=== PATIENT | female | born 1965 | race American Indian/Alaskan Native ===

== ENCOUNTER 2019-10-16 02:23 | Emergency (ER) | payer OTHER ==
--- NOTE | 2019-10-16 03:30 | XRay Report ---
CHEST 2 VIEWS INDICATION / CLINICAL INFORMATION: Chest Pain. COMPARISON: None available. FINDINGS: SUPPORT DEVICES: None. HEART / MEDIASTINUM: No significant abnormality. LUNGS / PLEURA: There is a 9 mm nodular density projecting in the right upper chest. There is a 2 cm nodular density projecting on the left upper chest. These are seen on only the frontal view..No pneum othorax. ADDITIONAL FINDINGS: No significant additional findings. IMPRESSION: 1. No focal infiltrate is seen. Nodular densities are noted bilaterally. These are seen on only the f rontal view and could potentially be artifactual related to the patient's clothing or other external structure. I suggest repeating the frontal chest radiograph after removing any possible artifact from clothing and ensuring the patient's hair is out of the field of view. If these densities persist, CT imaging will be necessary. Signer Name: Waylon Meza MD Signed: 10/16/2019 3:26 AM Workstation Name: [id number]
[2019-10-16 03:40] LABS: BUN/Creatinine Ratio 19; Blood Urea Nitrogen 15 mg/dL (7-17); Calcium 9.7 mg/dL (8.4-10.2); Hemolysis Index 76
[2019-10-16 04:30] LABS: Mean Corpuscular HGB Conc 33 % (30-34); Mean Corpuscular Volume 92 fl (79-97); Red Cell Distribution Width 14.4 % (13.2-15.2)
[2019-10-16 04:31] LABS: Platelet Count 51 K/mm3 (140-440)
[2019-10-16 04:35] LABS: Hematocrit 65.4 % (30.3-42.9); Hemoglobin 21.5 gm/dl (10.1-14.3)
[2019-10-16 05:14] LABS: Basophils % (Manual) 0 % (0.0-1.8); Eosinophils % (Manual) 0 % (0.0-4.3); Platelet Estimate Consistent w Auto; RBC Morphology Normal; Total Cells Counted 100
--- NOTE | 2019-10-16 06:22 | Emergency Department Report ---
ED Chest Pain HPI - General Chief Complaint: Chest Pain Stated Complaint: CHEST PAIN Time Seen by Provider: 10/16/19 06:11 Source: patient Mode of arrival: Ambulatory Limitations: No Limitations - History of Present Illness Initial Comments: This is a 54-year-old female that complains of chest pain since early last night. She describes it as left-sided mammary pain which also is experienced back. She has had occasional nonproductive cough. She does not complain of dyspnea initially. However on re-questioning she does admit that she has had dyspnea on exertion. Pain is nonpleuritic. It does worsen on movement and palpation. Patient states that she "had a physical" about a year ago. She reports no problem with blood work which she states was done at that time. She states that she had anemia secondary to fibroids but had a hysterectomy 4 years ago. She reports no persistent anemia. However she is found to be anemic and thrombocytopenic to date. Family history is very positive for coronary artery disease and percutaneous coronary intervention in multiple first-degree family members. Patient denies any prior personal stress testing. MD Complaint: chest pain -: Gradual, hour(s) Onset: during rest Pain Location: left chest Pain Radiation: back (Does not radiate to back but also feels it in the back) Severity: moderate Severity scale (0 -10): 6 Quality: aching Consistency: intermittent, now resolved Improves With: nothing Worsens With: movement re: dyspnea (Dyspnea on exertion). denies: nausea, vomting, diaphoresis Other Symptoms: cough (Occasional nonproductive). denies: fever, syncope, rash, acid taste in mouth, leg swelling Treatments Prior to Arrival: none Aspirin use within the Past 7 Days: (0) No - Related Data Allergies Allergy/AdvReac Type Severity Reaction Status Date / Time No Known Allergies Allergy Unverified 10/16/19 02:49 Heart Score - HEART Score History: Slightly suspicious EKG: Normal Age: 45-65 Risk factors: > 3 risk factors or hx of atherosclerotic disease Troponin: < normal limit HEART Score: 3 - Critical Actions Critical Actions: 0-3 pts:0.9-1.7%risk of adverse cardiac event.Candidate for discharge ED Review of Systems ROS: Stated complaint: CHEST PAIN Other details as noted in HPI Constitutional: denies: chills, fever Eyes: denies: eye pain, eye discharge, vision change ENT: denies: ear pain, throat pain Respiratory: SOB with exertion. denies: cough, shortness of breath, wheezing Cardiovascular: chest pain. denies: palpitations Endocrine: no symptoms reported Gastrointestinal: denies: abdominal pain, nausea, diarrhea Genitourinary: denies: urgency, dysuria, discharge Musculoskeletal: denies: back pain, joint swelling, arthralgia Skin: denies: rash, lesions Neurological: denies: headache, weakness, paresthesias Psychiatric: denies: anxiety, depression Hematological/Lymphatic: denies: easy bleeding, easy bruising ED Past Medical Hx - Past Medical History Previous Medical History?: No - Surgical History Past Surgical History?: Yes Additional Surgical History: hysterectomy - Social History Smoking Status: Current Every Day Smoker Substance Use Type: Marijuana ED Physical Exam - General Limitations: No Limitations General appearance: alert, in no apparent distress - Head Head exam: Present: atraumatic, normocephalic - Eye Eye exam: Present: normal appearance. Absent: scleral icterus - ENT ENT exam: Present: mucous membranes moist - Neck Neck exam: Present: normal inspection - Respiratory Respiratory exam: Present: normal lung sounds bilaterally. Absent: respiratory distress - Cardiovascular Cardiovascular Exam: Present: regular rate, normal rhythm. Absent: systolic murmur, diastolic murmur, rubs, gallop - GI/Abdominal GI/Abdominal exam: Present: soft, normal bowel sounds. Absent: distended, tenderness, guarding, rebound - Extremities Exam Extremities exam: Present: normal inspection, normal capillary refill. Absent: pedal edema, joint swelling, calf tenderness - Back Exam Back exam: Present: normal inspection - Neurological Exam Neurological exam: Present: alert, oriented X3, CN II-XII intact. Absent: motor sensory deficit - Psychiatric Psychiatric exam: Present: normal affect, normal mood - Skin Skin exam: Present: warm, dry, intact, normal color. Absent: rash ED Course Vital Signs 10/16/19 10/16/19 02:41 08:22 Temperature 97.8 F Pulse Rate 74 Respiratory 14 Rate Blood Pressure 148/112 Blood Pressure 152/104 [Left] O2 Sat by Pulse 98 Oximetry - Reevaluation(s) Reevaluation #1: Discussed with the day hospitalist. He stated that the service was capped and to defer the admission to the afternoon hospitalist. A consult to hematology was placed. A repeat CBC was ordered. Type and screen. The patient has remained hemodynamically stable. CT of the chest was negative for pulmonary embolism. Further work-up as an inpatient. 10/16/19 11:04 YUE score - Yue Score Age > 65: (0) No Aspirin use within the Past 7 Days: (0) No 3 or more CAD Risk Factors: (1) Yes 2 or more Angina events in past 24 hrs: (0) No Known CAD with more than 50% Stenosis: (0) No Elevated Cardiac Markers: (0) No ST Deviation Greater than 0.5mm: (0) No YUE Score: 1 ED Medical Decision Making - Lab Data Result diagrams: 10/16/19 02:52 10/16/19 02:52 Laboratory Results - last 24 hr 10/16/19 10/16/19 02:52 02:52 WBC 3.6 L RBC 7.10 H Hgb 21.5 H* Hct 65.4 H* MCV 92 MCH 30 MCHC 33 RDW 14.4 Plt Count 51 L Add Manual Diff Complete Total Counted 100 Seg Neuts % (Manual) 37.0 L Band Neutrophils % 0 Lymphocytes % (Manual) 61.0 H Reactive Lymphs % (Man) 0 Monocytes % (Manual) 2.0 Eosinophils % (Manual) 0 Basophils % (Manual) 0 Metamyelocytes % 0 Myelocytes % 0 Promyelocytes % 0 Blast Cells % 0 Nucleated RBC % Not Reportable Seg Neutrophils # Man 0.0 L Band Neutrophils # 0.0 Lymphocytes # (Manual) 0.0 L Abs React Lymphs (Man) 0.0 Monocytes # (Manual) 0.0 Eosinophils # (Manual) 0.0 Basophils # (Manual) 0.0 Metamyelocytes # 0.0 Myelocytes # 0.0 Promyelocytes # 0.0 Blast Cells # 0.0 WBC Morphology Not Reportable Hypersegmented Neuts Not Reportable Hyposegmented Neuts Not Reportable Hypogranular Neuts Not Reportable Smudge Cells Not Reportable Toxic Granulation Not Reportable Toxic Vacuolation Not Reportable Dohle Bodies Not Reportable Pelger-Huet Anomaly Not Reportable Milagros Rods Not Reportable Platelet Estimate Consistent w auto Clumped Platelets Not Reportable Plt Clumps, EDTA Not Reportable Large Platelets Not Reportable Giant Platelets Not Reportable Platelet Satelliting Not Reportable Plt Morphology Comment Not Reportable RBC Morphology Normal Dimorphic RBCs Not Reportable Polychromasia Not Reportable Hypochromasia Not Reportable Poikilocytosis Not Reportable Anisocytosis Not Reportable Microcytosis Not Reportable Macrocytosis Not Reportable Spherocytes Not Reportable Pappenheimer Bodies Not Reportable Sickle Cells Not Reportable Target Cells Not Reportable Tear Drop Cells Not Reportable Ovalocytes Not Reportable Helmet Cells Not Reportable Anderson-Happy Bodies Not Reportable Rapelje Rings Not Reportable [place] Cells Not Reportable Bite Cells Not Reportable Crenated Cell Not Reportable Elliptocytes Not Reportable Acanthocytes (Spur) Not Reportable Rouleaux Not Reportable Hemoglobin C Crystals Not Reportable Schistocytes Not Reportable Malaria parasites Not Reportable Jose Luis Bodies Not Reportable Hem Pathologist Commnt No Sodium 141 Potassium 4.3 Chloride 102.7 Carbon Dioxide 26 Anion Gap 17 BUN 15 Creatinine 0.8 Estimated GFR > 60 BUN/Creatinine Ratio 19 Glucose 86 Calcium 9.7 Troponin T < 0.010 Laboratory Results - last 24 hr 10/16/19 10/16/19 10/16/19 02:52 02:52 05:55 WBC 3.6 L RBC 7.10 H Hgb 21.5 H* Hct 65.4 H* MCV 92 MCH 30 MCHC 33 RDW 14.4 Plt Count 51 L Lymph % (Auto) Green House Manager Add Manual Diff Complete Total Counted 100 Seg Neuts % (Manual) 37.0 L Band Neutrophils % 0 Lymphocytes % (Manual) 61.0 H Reactive Lymphs % (Man) 0 Monocytes % (Manual) 2.0 Eosinophils % (Manual) 0 Basophils % (Manual) 0 Metamyelocytes % 0 Myelocytes % 0 Promyelocytes % 0 Blast Cells % 0 Nucleated RBC % Not Reportable Seg Neutrophils # Man 0.0 L Band Neutrophils # 0.0 Lymphocytes # (Manual) 0.0 L Abs React Lymphs (Man) 0.0 Monocytes # (Manual) 0.0 Eosinophils # (Manual) 0.0 Basophils # (Manual) 0.0 Metamyelocytes # 0.0 Myelocytes # 0.0 Promyelocytes # 0.0 Blast Cells # 0.0 WBC Morphology Not Reportable Hypersegmented Neuts Not Reportable Hyposegmented Neuts Not Reportable Hypogranular Neuts Not Reportable Smudge Cells Not Reportable Toxic Granulation Not Reportable Toxic Vacuolation Not Reportable Dohle Bodies Not Reportable Pelger-Huet Anomaly Not Reportable Milagros Rods Not Reportable Platelet Estimate Consistent w auto Clumped Platelets Not Reportable Plt Clumps, EDTA Not Reportable Large Platelets Not Reportable Giant Platelets Not Reportable Platelet Satelliting Not Reportable Plt Morphology Comment Not Reportable RBC Morphology Normal Dimorphic RBCs Not Reportable Polychromasia Not Reportable Hypochromasia Not Reportable Poikilocytosis Not Reportable Anisocytosis Not Reportable Microcytosis Not Reportable Macrocytosis Not Reportable Spherocytes Not Reportable Pappenheimer Bodies Not Reportable Sickle Cells Not Reportable Target Cells Not Reportable Tear Drop Cells Not Reportable Ovalocytes Not Reportable Helmet Cells Not Reportable Anderson-Happy Bodies Not Reportable Rapelje Rings Not Reportable [place] Cells Not Reportable Bite Cells Not Reportable Crenated Cell Not Reportable Elliptocytes Not Reportable Acanthocytes (Spur) Not Reportable Rouleaux Not Reportable Hemoglobin C Crystals Not Reportable Schistocytes Not Reportable Malaria parasites Not Reportable Jose Luis Bodies Not Reportable Hem Pathologist Commnt No Sodium 141 Potassium 4.3 Chloride 102.7 Carbon Dioxide 26 Anion Gap 17 BUN 15 Creatinine 0.8 Estimated GFR > 60 BUN/Creatinine Ratio 19 Glucose 86 Calcium 9.7 Troponin T < 0.010 < 0.010 - EKG Data -: EKG Interpreted by Me EKG shows normal: sinus rhythm (First-degree AV block), axis, intervals, QRS complexes, ST-T waves Rate: normal - EKG Data Interpretation: no acute changes - Radiology Data Radiology results: report reviewed (I believe the patient may have pulmonary nodules versus mass. The radiologist raises the question there of.), image reviewed IMPRESSION: 1. No CT evidence for pulmonary embolism. 2. Cardiomegaly with mild increase interstitial lung markings which could represent pulmonary edema. 3. Nodular densities in both lungs may represent early coalescent airspace edema. Follow-up noncontrast chest CT in 6 months is recommended to evaluate resolution of these findings. Critical care attestation.: If time is entered above; I have spent that time in minutes in the direct care of this critically ill patient, excluding procedure time. ED Disposition Clinical Impression: Pancytopenia, Pulmonary nodules Chest pain Qualifiers: Chest pain type: unspecified Qualified Code(s): R07.9 - Chest pain, unspecified Disposition: OP ADMIT IP TO THIS HOSP Is pt being admited?: Yes Does the pt Need Aspirin: No (Patient with a platelet count of 50,000 hold aspirin) Condition: Stable Instructions: Chest Pain (ED) Time of Disposition: 09:21
--- NOTE | 2019-10-16 08:22 | Cat Scan Report ---
CTA CHEST WITH CONTRAST INDICATION / CLINICAL INFORMATION: chest pain abn CXR. TECHNIQUE: Axial CT images were obtained through the chest after injection of 100 MLO Omnipaque 350 IV contrast. 3 plane MIP and/or 3D reconstructions were produced. All CT scans at this location are performed usi ng CT dose reduction for ALYSSA by means of automated exposure control. COMPARISON: None available. FINDINGS: PULMONARY ARTERIES: No pulmonary emboli. THORACIC AORTA: No significant abnormality. HEART: Heart is moderately enlarged. No pericardial effusion or other acute abnormality. CORONARY ARTERIES: No significant calcification. MEDIASTINUM / LYSSA: No significant abnormality. PLEURA: No pleural effusion. No pneumothorax. LUNGS: There are mild bilateral increased interstitial markings with peribronchial cuffing. Nodular d ensities on chest radiograph may represent coalescent areas of early airspace edema. ADDITIONAL FINDINGS: None. UPPER ABDOMEN: No acute findings. SKELETAL STRUCTURES: No significant osseous abnormality. IMPRESSION: 1. No CT evidence for pulmonary embolism. 2. Cardiomegaly with mild increase interstitial lung markings which could represent pulmonary edema. 3. Nodular densities in both lungs may represent early coalescent airspace edema. Follow-up noncontra st chest CT in 6 months is recommended to evaluate resolution of these findings. Signer Name: Rory Deleon MD Signed: 10/16/2019 8:17 AM Workstation Name: [id number]
[2019-10-16 08:23] LABS: INR 1.1 (0.87-1.13)
[2019-10-16 08:24] LABS: Partial Thromboplastin Time 46.4 Sec. (24.2-36.6)
[2019-10-16 08:26] LABS: Creatine Kinase MB 1.9 ng/mL (0.0-4.0)
[2019-10-16 08:27] LABS: Alanine Aminotransferase 15 units/L (7-56); Albumin 4.2 g/dL (3.9-5)
[2019-10-16 08:31] LABS: Bilirubin,Direct < 0.2 mg/dL (0-0.2)
[2019-10-16 12:41] VITALS: BP 150/102
[2019-10-16 13:17] LABS: Basophils # (Auto) 0.1 K/mm3 (0.0-0.1); Basophils % (Auto) 1.1 % (0.0-1.8); Eosinophils # (Auto) 0.1 K/mm3 (0.0-0.4); Eosinophils % (Auto) 1.1 % (0.0-4.3); Lymphocytes # (Auto) 2.6 K/mm3 (1.2-5.4); Lymphocytes % (Auto) 43.8 % (13.4-35.0); Mean Corpuscular HGB Conc 33 % (30-34); Mean Corpuscular Volume 91 fl (79-97); Monocytes # (Auto) 0.5 K/mm3 (0.0-0.8); Monocytes % (Auto) 7.8 % (0.0-7.3); Platelet Count 165 K/mm3 (140-440); Red Blood Count 4.62 M/mm3 (3.65-5.03); Red Cell Distribution Width 13.9 % (13.2-15.2)
== END 2019-10-16 14:51 | disposition other institution (70) ==
LOC: ED 02:23
DX: D61.818 Other pancytopenia (principal); J98.4 Other disorders of lung; F17.200 Nicotine dependence, unspecified, uncomplicated; F12.10 Cannabis abuse, uncomplicated; Z90.710 Acquired absence of both cervix and uterus
CPT/HCPCS: 36415; 71046; 71275; 80048; 80076; 82550; 82553; 82607; 82747; 83735; 83880; 84484; 85007; 85025; 85045; 85379; 85610; 85613; 85730; 86850; 86900; 86901; 93005; 93010; 99285; Q9967